=== PATIENT | female | born 1990 | race Caucasian/White ===

== ENCOUNTER 2023-06-21 16:31 | Emergency (ER) | payer BC ==
[~2023-06-21] VITALS: Wt 73.0 kg
[~2023-06-21 16:31] MED LIST: KEPPRA 500MG500 MG PO; LEVOTHYROXIN0.088 MG PO; NORCO 325 MG-7.1 TA1 PO; PHENERGAN 25 TA25 MG PO; SEROQUEL 1100 MG/TAB PO; TOPAMAX100 MG PO
[2023-06-21] MEDS ORDERED: LEVOTHYROXINE100 MC1 PO (16:50)
[2023-06-21 17:15] VITALS: BP 96/66
== END 2023-06-21 18:03 | disposition home or self-care (01) ==
LOC: ED 16:31
DX: S46.911A Strain of unspecified muscle, fascia and tendon at shoulder and upper arm level, right arm, initial encounter (principal); Z91.040 Latex allergy status; W00.0XXA Fall on same level due to ice and snow, initial encounter